=== PATIENT | female | born 1965 | race Caucasian/White ===

== ENCOUNTER 2016-12-02 10:30 | Emergency (ER) | payer OTHER ==
[~2016-12-02] VITALS: Wt 100.0 kg
[~2016-12-02 10:30] MED LIST: ACYC400T2 PO; ATOR20TA38 PO; BUPR300T48 PO; CALC500T12 PO; CHOL100062 PO; FER325 PO; FLUO20CA38 PO; OMEG-135 PO; RISP4TAB38 PO
[2016-12-02] MEDS ORDERED: SSD1C20 TOP (11:09)
[2016-12-02] MEDS ORDERED: DIPHTH/TET/ACEL PERTUSS (ADULT) 0.5 ML VIAL IM* ONE (11:30)
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
== END 2016-12-02 11:55 | disposition home or self-care (01) ==
LOC: FTE 10:30
DX: T23.232A Burn of second degree of multiple left fingers (nail), not including thumb, initial encounter (principal); E11.9 Type 2 diabetes mellitus without complications; I10 Essential (primary) hypertension; X13.1XXA Other contact with steam and other hot vapors, initial encounter; Y92.9 Unspecified place or not applicable; Z23 Encounter for immunization
CPT/HCPCS: 90471; 90715